=== PATIENT | male | born 1950 | race Caucasian/White ===

== ENCOUNTER 2019-02-16 17:06 | Inpatient (IN) | payer OTHER, MEDICARE ==
[~2019-02-16] VITALS: Ht 175.3 cm; Wt 64.9 kg
--- NOTE | 2019-02-16 22:04 | NUR ---
@1930 PATIENT ADMITTED FROM THE ER WITH HIS BROTHER. HE IS HAVING PAIN 8/10 IN HIS LOW ABDOMEN/PELVIS. HE IS NOT CURRENTLY NAUSEATED, HE WOULD LIKE TO EAT SOMETHING TONIGHT. ORIENTED TO ROOM AND NORMAL PROCEDURES TO EXPECT THROUGHTOUT THE NIGHT. CALL LIGHT WITHIN REACH. @2200 pATIENT CALLED RN TO ROOM WITH C/O 9/10 PAIN IN HIS PENIS AND RECTUM, SUDDEN ONSET WHEN PATIENT ATTEMPTED TP PASS GAS. THE PAIN HAS NOT SUBSIDED WITH TIME. MEDICATIONS GIVE WITH GOOD RELIEF.
--- NOTE | 2019-02-17 07:30 | NUR ---
pt awake reports pain 5/10 lower abd rad to r occ to the groin no nausea at this time but stated he has had it off and on sched for or this am npo
--- NOTE | 2019-02-17 07:45 | NUR ---
transported to day [facility] via [facility]
--- NOTE | 2019-02-17 07:57 | NUR ---
INTO SDS VIA [employer]. PT REPORTS 2/10 ABDOMINAL PAIN. DENIES NAUSEA. HISTORY AND ALLERGIES REVIEWED. NPO STATUS CONFIRMED. LUNGS WITH SCATTERED RHONCHI AND WZ. RHONCHI CLEAR SOMEWHAT WITH COUGH-PT IS A SMOKER.
--- NOTE | 2019-02-17 12:07 | NUR ---
ARRIVED BACK TO ROOM 232 FROM PACU S/P OPEN APPY PT HAS ROSARIO WOUND VAC SMALL AMT OF SEROSANG DRAINAGE PT REPORTS PAIN PRIOR TO MOVING 09/23 02/23 AFTER MOVING INTO THE BED WITH ASSIST PT HAS NAUSEA TAKING SIPS ONLY OF H20 CL TRAY ON HOLD UNILL NAUSEA IS BETTER MEDS GIVEN IN PACU
--- NOTE | 2019-02-17 14:19 | NUR ---
PT VISITING WITH BROTHER SPIRITUAL CARE AT BEDSIDE
--- NOTE | 2019-02-17 14:32 | NUR ---
Advance directive education conducted. Patient is recovering from surgery but still fairly alert with brother, Radames, bedside. Patient and Radames were delighted to receive an advance directive booklet. Radames tells me he was in on the process for his folks and his brother that in fill out their advance care planning forms. He stated that he knew its importance and how to fill it out. He thanked me for providing the booklet.
--- NOTE | 2019-02-17 16:37 | NUR ---
tums and prilosec given for radha pain meds also given increased pain
--- NOTE | 2019-02-17 18:55 | NUR ---
pt done eating cl diet min amt no nausea watching tv
[2019-02-18 04:12] LABS: BASOPHILS ABSOLUTE AUTO 0.02 K/mm3 (0.00-0.23); BASOPHILS PERCENT AUTO 0 % (0-2); EOSINOPHILS PERCENT AUTO 0 % (0-6); Hematocrit 23.6 % (37.0-53.0); Hemoglobin 7.4 g/dL (13.5-17.5); IMMATURE GRAN ABSOLUTE AUTO 0.04 K/mm3 (0.00-0.10); IMMATURE GRAN PERCENT AUTO 0 % (0-1); LYMPHOCYTES PERCENT AUTO 4 % (21-46); MONOCYTES ABSOLUTE AUTO 0.54 K/mm3 (0.16-1.47); MONOCYTES PERCENT AUTO 4 % (4-13); Mean Corpuscular HGB 28.1 pg (26.0-34.0); Mean Corpuscular HGB Conc 31.4 g/dL (31.5-36.5); Mean Corpuscular Volume 90 fL (80-100); NEUTROPHILS ABSOLUTE AUTO 12.18 K/mm3 (1.96-9.15); NEUTROPHILS PERCENT AUTO 92 % (41-73); Platelet Count 296 K/mm3 (150-400); RDW Coefficient Variation 15.6 % (11.7-14.2); RDW Standard Deviation 50.9 fL (35.1-46.3); Red Blood Cell Count 2.63 M/mm3 (4.30-5.90); White Blood Cell Count 13.28 K/mm3 (4.00-11.30)
[2019-02-18 04:30] LABS: Anion Gap 4 mmol/L (6-16); Blood Urea Nitrogen 18 mg/dL (8-24); Bun/Creatinine Ratio 19.6 (12.0-20.0); CO2, Blood 27 mmol/L (21-32); Calcium, Blood 7.7 mg/dL (8.5-10.1); Chloride, Blood 105 mmol/L (98-108); Creatinine, Blood 0.92 mg/dL (0.60-1.20); Glomerular Filtration Rate >60 (60-); Glucose, Blood 120 mg/dL (70-99); Phosphorus, Blood 2.3 mg/dL (2.5-4.9); Potassium, Blood 4.3 mmol/L (3.5-5.5); Sodium, Blood 136 mmol/L (136-145)
--- NOTE | 2019-02-18 06:44 | NUR ---
SUMMARY PT SLEPT OFF AND ON. REPOSITIONING WITH ASSIST FOR PILLOWS. NO C/O NAUSEA. SACHA PATENT.
--- NOTE | 2019-02-18 11:30 | NUR ---
DR TUBBS IN TO SEE PT.
--- NOTE | 2019-02-18 17:07 | NUR ---
SUMMARY NO ACUTE CHANGES T/O SHIFT. MEDICATED PER ORDERS T/O SHIFT FOR ABD PAIN. TOLERATING CLEAR LIQUIDS, REPORTS HUNGRY BUT DENIES PASSING FLATUS. BT PRESENT. PT AMBULATED IN SIEGEL THIS AM AND HAS SAT IN RECLINER FOR T/O SHIFT. SACHA HASTINGS THIS AM, PT REPORTS HAS VOIDED IN TOILET TWICE. BROTHER AT BEDSIDE. CALL LIGHT IN REACH. IV INFUSING W/O DIFFICULTY.
--- NOTE | 2019-02-19 07:34 | NUR ---
SUMMARY PT UP IN ROOM SBA.VOIDING WITHOUT DIFF. MED THIS AM WITH TORADOL.PT USUALLY RATES PAIN HIGH, BUT REPORTS LEVEL OK.PT ANXIOUS FOR DIET TO BE ADVANCED. HAS PASSED FLATUS. DAY RN AGREES TO FOLLOW UP. PT NOT ON THINNERS. DAY RN WILL FOLLOW UP ? THIS.PT REQUIRED NEW IV SITE THIS AM.
--- NOTE | 2019-02-19 10:00 | NUR ---
PAIN MANAGEMENT PT REPORTS CONTINUOUS UNTOLERABLE ABD PAIN DESPITE CURRENT PAIN RELIEF MEASURES AND MEDICATIONS. PT IS CURRENTLY AMBULATING IN HALLWAY AND REPORTS PASSING FLATUS T/O THE MORNING. LEFT MESSAGE FOR PROVIDER TO DISCUSS PT'S PAIN SITUATION.
--- NOTE | 2019-02-19 10:28 | NUR ---
SPOKE WITH DR. TUBBS, NEW ORDER TO ADVANCE DIET. NEW PAIN MED AND LOVENOX ORDERS OBTAINED.
--- NOTE | 2019-02-19 17:29 | NUR ---
SHIFT SUMMARY PT A&0X4 WITH VSS TODAY. IND IN ROOM WITH STAND BY TO BATHROOM R/T IV AND PAIN MEDS. REFUSES PAS STOCKINGS, NEW ORDER OBTAINED FOR LOVENOX. VOIDING WITHOUT DIFFICULTY AND REPORTS PASSING FLATUS T/O SHIFT; DECLINES BM. AMBULATED TWICE IN THE HALLWAY TODAY. TOLERATING FL DIET; DENIES ANY N/V OR ABD DISCOMFORT R/T INTAKE. ROSARIO DRESSING DRY AND INTACT W/ VAC IN PLACE; NO NEW DRAINAGE NOTED. PAIN CONTROLLED WELL PER EMAR AND REPOSITIONING. BROTHER AT BEDSIDE T/O THE AFTERNOON. CALL LIGHT WITHIN REACH AND ABLE TO USE APPROPRIATELY.
[2019-02-20 04:43] LABS: BASOPHILS ABSOLUTE AUTO 0.01 K/mm3 (0.00-0.23); BASOPHILS PERCENT AUTO 0 % (0-2); EOSINOPHILS ABSOLUTE AUTO 0.03 K/mm3 (0.00-0.68); EOSINOPHILS PERCENT AUTO 0 % (0-6); Hematocrit 24.6 % (37.0-53.0); Hemoglobin 7.8 g/dL (13.5-17.5); IMMATURE GRAN ABSOLUTE AUTO 0.03 K/mm3 (0.00-0.10); IMMATURE GRAN PERCENT AUTO 0 % (0-1); LYMPHOCYTES ABSOLUTE AUTO 1.04 K/mm3 (0.84-5.20); LYMPHOCYTES PERCENT AUTO 11 % (21-46); MONOCYTES ABSOLUTE AUTO 0.57 K/mm3 (0.16-1.47); MONOCYTES PERCENT AUTO 6 % (4-13); Mean Corpuscular HGB 28.1 pg (26.0-34.0); Mean Corpuscular HGB Conc 31.7 g/dL (31.5-36.5); Mean Corpuscular Volume 89 fL (80-100); Mean Platelet Volume 10.1 fL (9.1-12.4); NEUTROPHILS ABSOLUTE AUTO 8.23 K/mm3 (1.96-9.15); NEUTROPHILS PERCENT AUTO 83 % (41-73); Platelet Count 361 K/mm3 (150-400); RDW Coefficient Variation 15.3 % (11.7-14.2); RDW Standard Deviation 50.2 fL (35.1-46.3); Red Blood Cell Count 2.78 M/mm3 (4.30-5.90); White Blood Cell Count 9.91 K/mm3 (4.00-11.30)
--- NOTE | 2019-02-20 04:46 | NUR ---
SUMMARY SLEP QUIETLY TONIGHT. REPORTS PAIN HAS HAD BETTER CONTROL TONIGHT.NO C/O NAUSEA. VOIDING WITHOUT DIFF.
[2019-02-20 05:05] LABS: Anion Gap 3 mmol/L (6-16); Blood Urea Nitrogen 11 mg/dL (8-24); Bun/Creatinine Ratio 13.5 (12.0-20.0); CO2, Blood 31 mmol/L (21-32); Calcium, Blood 7.6 mg/dL (8.5-10.1); Chloride, Blood 103 mmol/L (98-108); Creatinine, Blood 0.81 mg/dL (0.60-1.20); Glomerular Filtration Rate >60 (60-); Glucose, Blood 99 mg/dL (70-99); Magnesium, Blood 1.8 mg/dL (1.6-2.4); Phosphorus, Blood 3.1 mg/dL (2.5-4.9); Potassium, Blood 3.9 mmol/L (3.5-5.5); Sodium, Blood 137 mmol/L (136-145)
--- NOTE | 2019-02-20 17:18 | NUR ---
SHIFT SUMMARY PT HAS BEEN UP TO BATHROOM TODAY AND SHOWERED. PAIN MANAGED WITH MEDS PER ORDERS. TOLERATING FLUIDS WELL. DRESSINGS DRY AND INTACT. PT VOIDING, REPORTS BM'S. PT HAD PRN INHALER/BREATHING TREATMENT WITH RT TODAY. HAS HX OF COPD. PT AO, INDEPENDANT IN . HAD VISITORS TODAY. ASSISTED WITH ADL'S PRN.
--- NOTE | 2019-02-21 06:59 | NUR ---
SUMMARY: POD 4 ILEOCECECTOMY. VSS, AFEBRILE, PASSING GAS AND SMALL LOOSE STOOL. TOLERATING PO INTAKE AND PAIN WELL CONTROLLED WITH 10MG PO ROXICODONE. ANTICIPATE DC HOME LATER THIS DAY.
--- NOTE | 2019-02-21 17:43 | NUR ---
SHIFT SUMMARY PT HAD VISITOR TODAY. HAS REPORTED PAIN CONTROLLED WITH PO PAIN MEDS. PT DID HAVE SOME NAUSEA AFTER EATING SOLID FOOD. PO ZOFRAN GIVEN PER EMAR. PT REPORTS THIS HELPED. PT IND IN RM. TOLERATING FLUIDS WELL AND VOIDING. ASSISTED WTIH ADL'S PRN.
--- NOTE | 2019-02-22 07:48 | NUR ---
pt reporting nausea still with the reg diet zofran given pre med before breakfast pt reports abd pain 5/10 at this time will med after food to decrease the nausea pt stated he is passing flatus abd had a bm
--- NOTE | 2019-02-22 11:00 | NUR ---
pt having hiccups reglan given still no bm miralx given earlier pt drinking prune juice
--- NOTE | 2019-02-22 15:50 | NUR ---
PRUNE JUICE AND REGLAN GIVEN PT STATED HE PASSED SOME GAS NO BM YET
--- NOTE | 2019-02-22 17:04 | NUR ---
po pain meds given with pudding
--- NOTE | 2019-02-23 04:48 | NUR ---
Pt Alert and oriented x4. VSS. COmplaints of mild abd pain and hiccups. Passing gas but no BM. Given miralax; no results. Ambulating in room independently. medicated as ordered.
--- NOTE | 2019-02-23 18:14 | NUR ---
SHIFT SUMMARY PT A&OX4 WITH VSS T/O SHIFT TODAY. REPORTS NOT PASSING FLATUS SINCE THIS MORNING. NEW ORDERS OBTAINED AND MEDICATED PER EMAR. PT AMBULATED IND IN ROOM, HALLWAYS, AND OUTSIDE TODAY. BROTHER AT BEDSIDE FOR MOST OF THE SHIFT. C/O PAIN ONCE TODAY; PO PAIN MEDICATIONS GIVEN.
--- NOTE | 2019-02-24 05:51 | NUR ---
PT ALERT AND ORIENTED. VSS. AMBULATING IN ROOM. ABDOMEN DISTENDED; PATIENT COMPLAINT OF PAIN AND HICCUPS PASSING GAS. NO BM, DULCOLAX SUPP GIVEN; AWAITING RESULTS.
[2019-02-24 09:05] LABS: BASOPHILS ABSOLUTE AUTO 0.02 K/mm3 (0.00-0.23); BASOPHILS PERCENT AUTO 0 % (0-2); EOSINOPHILS ABSOLUTE AUTO 0.03 K/mm3 (0.00-0.68); EOSINOPHILS PERCENT AUTO 0 % (0-6); Hematocrit 29.7 % (37.0-53.0); Hemoglobin 9.4 g/dL (13.5-17.5); IMMATURE GRAN ABSOLUTE AUTO 0.13 K/mm3 (0.00-0.10); IMMATURE GRAN PERCENT AUTO 1 % (0-1); LYMPHOCYTES ABSOLUTE AUTO 1.22 K/mm3 (0.84-5.20); LYMPHOCYTES PERCENT AUTO 10 % (21-46); MONOCYTES ABSOLUTE AUTO 0.71 K/mm3 (0.16-1.47); MONOCYTES PERCENT AUTO 6 % (4-13); Mean Corpuscular HGB 27.3 pg (26.0-34.0); Mean Corpuscular HGB Conc 31.6 g/dL (31.5-36.5); Mean Platelet Volume 9.9 fL (9.1-12.4); NEUTROPHILS ABSOLUTE AUTO 10.07 K/mm3 (1.96-9.15); NEUTROPHILS PERCENT AUTO 83 % (41-73); Platelet Count 663 K/mm3 (150-400); RDW Coefficient Variation 15.9 % (11.7-14.2); RDW Standard Deviation 50.4 fL (35.1-46.3); Red Blood Cell Count 3.44 M/mm3 (4.30-5.90); White Blood Cell Count 12.18 K/mm3 (4.00-11.30)
[2019-02-24 09:09] LABS: Mean Corpuscular Volume 86 fL (80-100)
[2019-02-24 09:16] LABS: Anion Gap 8 mmol/L (6-16); Blood Urea Nitrogen 8 mg/dL (8-24); Bun/Creatinine Ratio 9.2 (12.0-20.0); CO2, Blood 30 mmol/L (21-32); Calcium, Blood 8.3 mg/dL (8.5-10.1); Chloride, Blood 97 mmol/L (98-108); Creatinine, Blood 0.87 mg/dL (0.60-1.20); Glomerular Filtration Rate >60 (60-); Glucose, Blood 101 mg/dL (70-99); Potassium, Blood 4.3 mmol/L (3.5-5.5); Sodium, Blood 135 mmol/L (136-145)
--- NOTE | 2019-02-24 11:36 | NUR ---
PT ANXIOUS AND REPORTS SOB PT REPORTED FEELING ANXIOUS AND SOB AT APPROX 1100 TODAY. PT WAS A&OX4, SPO2 AT 98% RA WITH RR OF 20. WHEEZES AUSCULTATED IN TAYLOR/RUL WITH COARSE CRACKLES AT BASES. HOB ELEVATED, DEEP COUGH/BREATHS AND I.S. USE ENCOURAGED, AND BREATHING TREATMENT ORDERED. REPORTED "FEELING BETTER" AFTER BREATHING TREATMENT AND DENIED ANY SOB. NO WHEEZING IN UPPER LOBES NOTED AT THIS TIME. PT IS CURRENTLY SLEEPING IN BED. WILL CONTINUE TO MONITOR.
--- NOTE | 2019-02-24 13:18 | NUR ---
PT TO CT VIA WHEELCHAIR AT THIS TIME
--- NOTE | 2019-02-24 13:49 | NUR ---
BACK FROM IMAGING.
--- NOTE | 2019-02-24 16:14 | NUR ---
DR. TUBBS IN TO SEE PT THIS AFTERNOON. NEW ORDERS OBTAINED.
[2019-02-24 16:27] LABS: International Normalized Ratio 1.17; Prothrombin Time Results 12.2 Sec (9.7-11.5)
--- NOTE | 2019-02-24 17:22 | NUR ---
SHIFT SUMMARY HAD C/T TODAY THAT SHOWED ABSCESS. ORDERS OBTAINED FOR PERCUTANEOUS DRAIN. CURRENTLY IN IMAGING FOR PLACEMENT. HAD ONE EPISODE OF SOB AND ANXIOUSNESS THIS MORNING; O2 SATS STABLE AND RECEIVED BREATHING TREATMENT; NO NEW COMPLAINTS. ON CL DIET. IND IN ROOM AND WITH VISITOR AT BEDSIDE FREQUENTLY T/O SHIFT. HAD 2 BM TODAY.
--- NOTE | 2019-02-24 18:20 | NUR ---
PT BACK FROM IMAGING
[2019-02-25 05:47] LABS: BASOPHILS ABSOLUTE AUTO 0.03 K/mm3 (0.00-0.23); BASOPHILS PERCENT AUTO 0 % (0-2); EOSINOPHILS ABSOLUTE AUTO 0.01 K/mm3 (0.00-0.68); EOSINOPHILS PERCENT AUTO 0 % (0-6); Hematocrit 25.8 % (37.0-53.0); Hemoglobin 8.5 g/dL (13.5-17.5); IMMATURE GRAN ABSOLUTE AUTO 0.17 K/mm3 (0.00-0.10); IMMATURE GRAN PERCENT AUTO 1 % (0-1); LYMPHOCYTES ABSOLUTE AUTO 1.28 K/mm3 (0.84-5.20); LYMPHOCYTES PERCENT AUTO 9 % (21-46); MONOCYTES PERCENT AUTO 7 % (4-13); Mean Corpuscular HGB 27.1 pg (26.0-34.0); Mean Corpuscular HGB Conc 32.9 g/dL (31.5-36.5); Mean Platelet Volume 9.3 fL (9.1-12.4); NEUTROPHILS ABSOLUTE AUTO 11.64 K/mm3 (1.96-9.15); NEUTROPHILS PERCENT AUTO 82 % (41-73); Platelet Count 641 K/mm3 (150-400); RDW Coefficient Variation 15.9 % (11.7-14.2); RDW Standard Deviation 47.2 fL (35.1-46.3); Red Blood Cell Count 3.14 M/mm3 (4.30-5.90); White Blood Cell Count 14.13 K/mm3 (4.00-11.30)
[2019-02-25 05:51] LABS: Mean Corpuscular Volume 82 fL (80-100)
[2019-02-25 06:12] LABS: Anion Gap 7 mmol/L (6-16); Blood Urea Nitrogen 12 mg/dL (8-24); Bun/Creatinine Ratio 15.3 (12.0-20.0); CO2, Blood 28 mmol/L (21-32); Chloride, Blood 101 mmol/L (98-108); Creatinine, Blood 0.78 mg/dL (0.60-1.20); Glomerular Filtration Rate >60 (60-); Glucose, Blood 141 mg/dL (70-99); Magnesium, Blood 2.5 mg/dL (1.6-2.4); Phosphorus, Blood 2.8 mg/dL (2.5-4.9); Potassium, Blood 3.8 mmol/L (3.5-5.5); Sodium, Blood 136 mmol/L (136-145); Triglycerides 175 mg/dL (30-160)
--- NOTE | 2019-02-25 06:12 | NUR ---
SHIFT SUMMARY PT POD#8. AAOX4. DISCOMFORT AT TOLERABLE LEVEL T/O NIGHT. NO NAUSEA/EMESIS. ABD INCISION WITH ROSARIO SECURE/COMPRESSED WITH NO DRAINAGE. PERCUTANIOUS DRAIN PLACE YESTARDAY, SCANT AMOUNT DRAINAGE NOTED. PT RESTED WELL T/O NIGHT. CLINIMIX + IV ABX PER ORDERS. PT RESTING WELL THIS AM, CALL LIGHT IN REACH.
--- NOTE | 2019-02-25 17:25 | NUR ---
SHIFT SUMMARY PT IS IND IN RM. HAS REPORTED SOME PAIN TODAY AND WAS MEDICATED PER ORDERS. TOLERATING CLEAR LIQUID DIET WELL. FAMILY HAS BEEN IN TO SEE PT. WAS IN TO SEE PT TODAY AND CHECKED DRAIN AND WOUND VAC. PT ASSISTED WITH ADL'S PRN.
[2019-02-26 05:59] LABS: Magnesium, Blood 2.3 mg/dL (1.6-2.4)
--- NOTE | 2019-02-26 06:27 | NUR ---
SHIFT SUMMARY: NANCY IS POD9 AFTER UNDERGOING AN APPENDECTOMY AND BOWEL RESECTION. HIS ROSARIO WOUND VAC IS PATENT. HE HAS A DRAIN TO HIS LEFT LOWER FLANK WHICH HAS A SCANT AMOUNT OF SEROSANGEINOUS FLUID. HE RATED HIS PAIN AT 7/10 FOR WHICH ROXICODONE WAS EFFECTIVE. HE DENIES ANY NAUSEA OR VOMITING. HE IS INDEPENDENT IN HIS ROOM. HE IS TOLERATING THE CLEAR LIQID DIET WELL. HE IS LYING IN BED WITH HIS CALL LIGHT IN REACH.
--- NOTE | 2019-02-26 16:23 | NUR ---
SHIFT SUMMARY PT WAS ADVANCED TO REGULAR DIET TODAY AND TOLERATED WELL. REPORTED NO NAUSEA AFTER EATING. PAIN HAS BEEN MANAGED WITH MED PRN. PT HAS VOIDED AND HAD BM TODAY. IND IN ROOM. PT HAD FAMILY IN TODAY. ASSISTED WT ADL'S PRN.
--- NOTE | 2019-02-27 06:08 | NUR ---
SHIFT SUMMARY: GALILEA IS A&O X4, INDEPENDENT IN HIS ROOM AND TOLERATING THE REGULAR DIET WELL. HE DENIES ANY N/V. HE IS ABLE TO MAKE HIS NEEDS KNOWN. HE COMPLAINS OF 8/10 PAIN THAT IS HELPED WITH THE ROXICODONE. HIS CALL LIGHT IS IN REACH. NO ACUTE CHANGES THIS SHIFT.
[2019-02-27 07:05] LABS: BASOPHILS ABSOLUTE AUTO 0.05 K/mm3 (0.00-0.23); BASOPHILS PERCENT AUTO 0 % (0-2); EOSINOPHILS ABSOLUTE AUTO 0.11 K/mm3 (0.00-0.68); EOSINOPHILS PERCENT AUTO 1 % (0-6); Hemoglobin 8.1 g/dL (13.5-17.5); IMMATURE GRAN ABSOLUTE AUTO 0.21 K/mm3 (0.00-0.10); IMMATURE GRAN PERCENT AUTO 2 % (0-1); LYMPHOCYTES ABSOLUTE AUTO 1.79 K/mm3 (0.84-5.20); LYMPHOCYTES PERCENT AUTO 13 % (21-46); MONOCYTES PERCENT AUTO 6 % (4-13); Mean Corpuscular HGB 26.6 pg (26.0-34.0); Mean Corpuscular HGB Conc 31.2 g/dL (31.5-36.5); Mean Platelet Volume 9.7 fL (9.1-12.4); NEUTROPHILS ABSOLUTE AUTO 10.64 K/mm3 (1.96-9.15); NEUTROPHILS PERCENT AUTO 78 % (41-73); Platelet Count 552 K/mm3 (150-400); RDW Coefficient Variation 16.5 % (11.7-14.2); RDW Standard Deviation 51.3 fL (35.1-46.3); Red Blood Cell Count 3.05 M/mm3 (4.30-5.90)
[2019-02-27 07:08] LABS: Mean Corpuscular Volume 85 fL (80-100)
[2019-02-27 07:18] LABS: Magnesium, Blood 2.2 mg/dL (1.6-2.4); Phosphorus, Blood 3.5 mg/dL (2.5-4.9)
--- NOTE | 2019-02-27 08:33 | NUR ---
PT TO IMAGING AT THIS TIME VIA WHEELCHAIR
--- NOTE | 2019-02-27 10:07 | NUR ---
PT gave permission for this student nurse to work with him
--- NOTE | 2019-02-27 17:53 | NUR ---
SUMMARY: NO ACUTE CHANGE TODAY, VSS, A/O. PT INDEPENDENT IN ROOM. VOIDING AND HAD BM TODAY. PAIN IS WELL MANAGED, PLAN IS POSSIBLE DISCHARGE TOMORROW.
--- NOTE | 2019-02-28 05:54 | NUR ---
PT VSS T/O NIGHT. INCISION CDI. PT MED FOR PAIN X1 W/REP RELIEF. PT DID HAVE 2 EPISODES OF N/V W/GREEN EMESIS. ABD SOFT, T-TUBE PUTTING OUT SMALL AMT SS DNRG. PT REP +FLATUS, NO BM THIS SHIFT. PT UP INDEP IN ROOM, USING CALL LIGHT FOR ASSISTANCE, IV ABX CONT PER ORDERS. WILL CONT TO MONITOR UNTIL REP GIVEN TO ONCOMING RN.
--- NOTE | 2019-02-28 18:02 | NUR ---
AT ABOUT 1630 PT CALLED THIS RN INTO ROOM. PT REPORTS THAT HIS R CHEEK IS NUMB AND THAT THE RIGHT SIDE OF HIS FACE IS DROOPING. FULL NEURO ASSESSMENT COMPLETED WITHOUT ANY ACUTE FINDINGS. PT HAS EQUAL STRENGTH, PUPILS WNL, IS A/O. DENIES ANY NUMBNESS/TINGLING EXCEPT IN R CHEEK. R FACIL DROOP AND SMALL AMOUNT SLURRED SPEECH IS NOTED ON ASSESSMENT, BUT THIS RN IS SPEAKING WITH THE PT, THE DROOP BECOMES LESS, PT SPEECH BECOMES MORE CLEAR AND PT REPORTS FEELING COMING BACK INTO R CHEEK. VS ARE STABLE. DR. TUBBS MADE AWARE OF THIS AND HOSPITALIST, DR. BOONETRATE CALLED FOR CONSULT.
--- NOTE | 2019-02-28 18:13 | NUR ---
SUMMARY: PT HAS HAD AN ODD DAY. SEE PREVIOUS NOTE. HAS HAD INTERMITTANT NAUSEA ALL DAY AND REPORTS "FEELING SICK". HAS HAD A TOTAL OF 1800ML EMESIS. PT REPORT IV ZOFRAN DOES NOT HELP WITH NAUSEA, DR. TUBBS NOTIFIED OF PT NAUSEA AND REGLAN ORDERED.
--- NOTE | 2019-02-28 19:47 | NUR ---
SUMMARY CONTINUED: SURGICAL SITES WNL. PT INDEPENDENT IN ROOM. ISTRATE ABLE TO SEE PT AND IMAGING ORDERED, AWAITING RESULTS. WILL PASS REPORT TO GRETCHEN PRITCHETT.
[2019-03-01 06:04] LABS: BASOPHILS ABSOLUTE AUTO 0.07 K/mm3 (0.00-0.23); BASOPHILS PERCENT AUTO 1 % (0-2); EOSINOPHILS ABSOLUTE AUTO 0.04 K/mm3 (0.00-0.68); EOSINOPHILS PERCENT AUTO 0 % (0-6); Hematocrit 29.7 % (37.0-53.0); Hemoglobin 9.6 g/dL (13.5-17.5); IMMATURE GRAN ABSOLUTE AUTO 0.14 K/mm3 (0.00-0.10); IMMATURE GRAN PERCENT AUTO 1 % (0-1); LYMPHOCYTES ABSOLUTE AUTO 1.59 K/mm3 (0.84-5.20); LYMPHOCYTES PERCENT AUTO 12 % (21-46); MONOCYTES ABSOLUTE AUTO 0.91 K/mm3 (0.16-1.47); MONOCYTES PERCENT AUTO 7 % (4-13); Mean Corpuscular HGB 27.1 pg (26.0-34.0); Mean Corpuscular HGB Conc 32.3 g/dL (31.5-36.5); Mean Corpuscular Volume 84 fL (80-100); Mean Platelet Volume 9.6 fL (9.1-12.4); NEUTROPHILS ABSOLUTE AUTO 11.07 K/mm3 (1.96-9.15); NEUTROPHILS PERCENT AUTO 80 % (41-73); Platelet Count 781 K/mm3 (150-400); RDW Coefficient Variation 16.5 % (11.7-14.2); RDW Standard Deviation 50.4 fL (35.1-46.3); Red Blood Cell Count 3.54 M/mm3 (4.30-5.90); White Blood Cell Count 13.82 K/mm3 (4.00-11.30)
[2019-03-01 06:11] LABS: Alanine Aminotransfer (ALT/SGP 44 U/L (12-78); Albumin, Blood 2.3 g/dL (3.4-5.0); Albumin/Globulin Ratio 0.5 (0.8-1.8); Alk Phos 157 U/L (50-136); Anion Gap 8 mmol/L (6-16); Aspartate Aminotrans (AST/SGOT 36 U/L (12-37); Bilirubin, Total 0.5 mg/dL (0.1-1.0); Blood Urea Nitrogen 23 mg/dL (8-24); Bun/Creatinine Ratio 21.7 (12.0-20.0); CO2, Blood 31 mmol/L (21-32); Calcium, Blood 8.9 mg/dL (8.5-10.1); Chloride, Blood 97 mmol/L (98-108); Creatinine, Blood 1.06 mg/dL (0.60-1.20); Glomerular Filtration Rate >60 (60-); Glucose, Blood 114 mg/dL (70-99); Potassium, Blood 3.7 mmol/L (3.5-5.5); Sodium, Blood 136 mmol/L (136-145); Total Protein, Blood 7.3 g/dL (6.4-8.2)
--- NOTE | 2019-03-01 06:36 | NUR ---
PT VSS T/O NIGHT. PAIN MGD W/PO PAIN MEDS W/REP RELIEF. PT CONT TO HAVE NAUSEA W/2 EPISODES OF SM AMT EMESIS. PT REFUSING NASUEA MEDS, STATING "I THINK THEY MAKE IT WORSE" PT REP +FLATUS NAD 1 LARGE BM THIS SHIFT. PO INTAKE MINIMAL, CLINIMIX CONT PER ORDERS. MINIMAL SS DRNG FROM T-TUBE. WILL CONT TO MONITOR UNTIL REP GIVEN TO ONCOMING RN.
--- NOTE | 2019-03-01 09:13 | NUR ---
pt ref meds for bm stated that he had two bm yesterday 1 lg 1 small 1 episode of emesis this am offered zofran pt declined offered tums stated ok pt stated no residual symptoms from yesterday had a droop for several min and garbled speech no other symptoms pt pig tail drain has red liquid drainage small amt some abd dist
--- NOTE | 2019-03-01 12:03 | NUR ---
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
--- NOTE | 2019-03-01 12:07 | NUR ---
message left with ans service at [facility]
--- NOTE | 2019-03-01 12:31 | NUR ---
dr zazueta to see pt later today around 700 pm mri form faxed
--- NOTE | 2019-03-01 16:07 | NUR ---
ISTRATE BACK BY TO SEE PT DECADRON ORDERED FOR THE N/V FIRST DOSE GIVEN
--- NOTE | 2019-03-01 18:20 | NUR ---
PT WENT OUT TO SMOKE STATED HIS NAUSEA IS BETTER
--- NOTE | 2019-03-01 18:51 | NUR ---
pt back from smoking hooked back to ivf
--- NOTE | 2019-03-01 19:20 | NUR ---
dr zazueta by to see pt going over dx/tx and mri results pt brother also there pt's sister req to be called
--- NOTE | 2019-03-02 05:57 | NUR ---
SHIFT SUMMARY: GALILEA IS RECOVERING AFTER UNDERGOING SURGERY FOR A PERFORATED APPENDIX WITH CONVERSION TO OPEN PROCEDURE WITH ILEOCECECTOMY. THAT SURGERY WAS PERFORMED 02/17/19. AN ABSCESS DEVELOPED AND A DRAIN WAS PLACED 02/24/19. HE DENIES VOMITING AT THIS TIME. HE DOES REPORT SOME MILD NAUSEA BUT HIS MAIN COMPLAINT WAS EPIGASTRIC PAIN WHICH WAS RESOLVED WITH A GI COCKTAIL. HIS ABDOMINAL INCISION IS GRICELDA, NO DRAINAGE OR S/S OF INFECTION. VSS. HE IS LYING IN BED WITH HIS CALL LIGHT IN REACH. HE IS INDEPENDENT IN THE ROOM.
[2019-03-02 06:44] LABS: Hematocrit 28.2 % (37.0-53.0); Hemoglobin 9.1 g/dL (13.5-17.5); Mean Corpuscular HGB 27.7 pg (26.0-34.0); Mean Corpuscular HGB Conc 32.3 g/dL (31.5-36.5); Mean Corpuscular Volume 86 fL (80-100); Mean Platelet Volume 9.6 fL (9.1-12.4); Platelet Count 820 K/mm3 (150-400); RDW Coefficient Variation 16.6 % (11.7-14.2); RDW Standard Deviation 51.3 fL (35.1-46.3); Red Blood Cell Count 3.29 M/mm3 (4.30-5.90); White Blood Cell Count 12.73 K/mm3 (4.00-11.30)
[2019-03-02 07:02] LABS: Magnesium, Blood 2.5 mg/dL (1.6-2.4); Phosphorus, Blood 4.4 mg/dL (2.5-4.9)
[2019-03-02 07:14] LABS: BAND PERCENT MAN 1 % (0-8); BASOPHILS PERCENT MAN 0 % (0-2); EOSINOPHILS PERCENT MAN 0 % (0-6); LYMPHOCYTES PERCENT MAN 15 % (21-46); METAMYELOCYTE ABSOLUTE MAN 0.12 K/mm3 (0.00-0.00); METAMYELOCYTE PERCENT MAN 1 % (0-0); MONOCYTES ABSOLUTE MAN 1.52 K/mm3 (0.16-1.47); MONOCYTES PERCENT MAN 12 % (4-13); NEUTROPHILS ABSOLUTE MAN 9.16 K/mm3 (1.96-9.15); SEG NEUTROPHILS PERCENT MAN 71 % (41-73); TOTAL CELLS COUNTED 100
--- NOTE | 2019-03-02 08:05 | NUR ---
ASSESSMENT: PT SLEEPING. RESP E/U. NO S/S PAIN OR DISTRESS. CALL LIGHT IN REACH. WILL ALLOW REST AND FULLY ASSESS WHEN PT IS AWAKE.
--- NOTE | 2019-03-02 09:27 | NUR ---
rounding: dr in to see patient and make some medication changes. stool softeners held r/t multiple soft bm's. ct of chest ordered for today. am labs ordered.
--- NOTE | 2019-03-02 10:01 | NUR ---
IMAGING: PT TO IMAGING FOR CT OF CHEST.
--- NOTE | 2019-03-02 12:00 | NUR ---
WOUND: DR TUBBS IN TO SEE PATIENT. RICKI REMOVED FROM SURGICAL SITES PER VERBAL ORDER. PT TRACEY WELL.
--- NOTE | 2019-03-02 13:11 | NUR ---
RESPIRATORY: PT HAS BEEN PLACED IN AIRBORNE ISOLATION FOR TB PRECAUTIONS. EXPLAINED TO FAMILY AND PATIENT. PULMONOLOGY CONSULT CALLED.
--- NOTE | 2019-03-02 17:11 | NUR ---
PT HAS BEEN STABLE THIS SHIFT. PT HAD CT OF CHEST THIS AM. PT IN AIRBORNE ISOLATION R/T R/O OF TB, LAB PENDING. SPUTUM SENT FOR AFB, BACTERIA AND FUNGUS. PT HAS WHEEZES T/O LUNGS WITH OCCASIONAL DRY COUGH. PT UP INDEP IN ROOM. PT CONT TO SMOKE. RICKI REMOVED FROM SURGICAL SITES. PT HAS POOR APPETITE, CONT CLINIMIX. VOIDING WELL WITH BR PRIVILEGES. PROTONIX STARTED FOR GERD COMPLAINTS. NO NAUSEA OR EMESIS THIS SHIFT. BROTHER AT BEDSIDE. USES CALL LIGHT APPROPRIATELY NEEDED.
--- NOTE | 2019-03-03 05:24 | NUR ---
Patient alert and oriented. VSS. Ambulating to bathroom. voiding freely. No drainage from drain. No complaints of pain. NPO since midnight. Will hold 0600 oral meds pending Endoscopy in A.M. Sputum sample collect and sent to lab.
[2019-03-03 06:38] LABS: Hematocrit 25.1 % (37.0-53.0); Mean Corpuscular HGB 27.2 pg (26.0-34.0); Mean Corpuscular HGB Conc 31.9 g/dL (31.5-36.5); Mean Corpuscular Volume 85 fL (80-100); Mean Platelet Volume 9.6 fL (9.1-12.4); Platelet Count 773 K/mm3 (150-400); RDW Coefficient Variation 16.9 % (11.7-14.2); RDW Standard Deviation 52.3 fL (35.1-46.3); Red Blood Cell Count 2.94 M/mm3 (4.30-5.90); White Blood Cell Count 12.03 K/mm3 (4.00-11.30)
[2019-03-03 06:49] LABS: Anion Gap 7 mmol/L (6-16); Blood Urea Nitrogen 26 mg/dL (8-24); CO2, Blood 25 mmol/L (21-32); Calcium, Blood 8.3 mg/dL (8.5-10.1); Chloride, Blood 104 mmol/L (98-108); Creatinine, Blood 0.81 mg/dL (0.60-1.20); Glomerular Filtration Rate >60 (60-); Glucose, Blood 108 mg/dL (70-99); Potassium, Blood 4.2 mmol/L (3.5-5.5); Sodium, Blood 136 mmol/L (136-145)
[2019-03-03 06:59] LABS: BASOPHILS PERCENT MAN 0 % (0-2); EOSINOPHILS ABSOLUTE MAN 0.12 K/mm3 (0.00-0.68); EOSINOPHILS PERCENT MAN 1 % (0-6); LYMPHOCYTES % ATYPICAL MANUAL 2 % (0-0); LYMPHOCYTES ABSOLUTE MAN 2.28 K/mm3 (0.84-5.20); LYMPHOCYTES PERCENT MAN 17 % (21-46); MONOCYTES PERCENT MAN 5 % (4-13); NEUTROPHILS ABSOLUTE MAN 9.02 K/mm3 (1.96-9.15); SEG NEUTROPHILS PERCENT MAN 75 % (41-73); TOTAL CELLS COUNTED 100
--- NOTE | 2019-03-03 07:50 | NUR ---
pt resting meds given earlier protonix and decadron npo for bronch with pulomonology pt stated no nausea this am feels better no drainage per t tube drain
--- NOTE | 2019-03-03 09:50 | NUR ---
operator lights and dr bernard by to see pt called day surg to cancel bronch per his req will cont to try to obtain sputum samples need 2 more [address] bernard pt may d/c home surg cleared but must remain until samples are given t tube drain removed earlier dr santamaria came by re tb skin test while he is here
--- NOTE | 2019-03-03 15:56 | NUR ---
SECOND SPUTUM SAMPLE SENT TO LAB NO SALIVA ALSO SL IV PT EATING AND DRINKING WELL NO NAUSEA ABX CHANGE TO PO
--- NOTE | 2019-03-03 17:30 | NUR ---
pt eating dinner
[2019-03-04 10:15] LABS: BASOPHILS ABSOLUTE AUTO 0.01 K/mm3 (0.00-0.23); BASOPHILS PERCENT AUTO 0 % (0-2); EOSINOPHILS ABSOLUTE AUTO 0.01 K/mm3 (0.00-0.68); EOSINOPHILS PERCENT AUTO 0 % (0-6); Hematocrit 27.5 % (37.0-53.0); Hemoglobin 8.6 g/dL (13.5-17.5); IMMATURE GRAN ABSOLUTE AUTO 0.05 K/mm3 (0.00-0.10); IMMATURE GRAN PERCENT AUTO 1 % (0-1); LYMPHOCYTES ABSOLUTE AUTO 1.04 K/mm3 (0.84-5.20); LYMPHOCYTES PERCENT AUTO 10 % (21-46); MONOCYTES ABSOLUTE AUTO 0.27 K/mm3 (0.16-1.47); MONOCYTES PERCENT AUTO 3 % (4-13); Mean Corpuscular HGB 27.5 pg (26.0-34.0); Mean Corpuscular HGB Conc 31.3 g/dL (31.5-36.5); Mean Platelet Volume 9.5 fL (9.1-12.4); NEUTROPHILS ABSOLUTE AUTO 8.68 K/mm3 (1.96-9.15); NEUTROPHILS PERCENT AUTO 86 % (41-73); Platelet Count 706 K/mm3 (150-400); RDW Coefficient Variation 17.1 % (11.7-14.2); RDW Standard Deviation 54.5 fL (35.1-46.3); Red Blood Cell Count 3.13 M/mm3 (4.30-5.90); White Blood Cell Count 10.06 K/mm3 (4.00-11.30)
[2019-03-04 10:17] LABS: Mean Corpuscular Volume 88 fL (80-100)
--- NOTE | 2019-03-04 12:01 | NUR ---
48 HR TB TEST READ: NO REDNESS OR SWELLING TO SITE. CHARTED IN EMAR
[2019-03-04 14:06] LABS: QUANTIFERON MITOGEN VALUE 0.84 IU/mL (.); QUANTIFERON NIL VALUE 0.03 IU/mL (.); QUANTIFERON TB1 AG VALUE 0.03 IU/mL (.); QUANTIFERON TB2 AG VALUE 0.03 IU/mL (.); QUANTIFERON-TB GOLD PLUS Negative (Negative)
--- NOTE | 2019-03-04 19:04 | NUR ---
SUMMARY: NO ACUTE CHANGE TODAY, VSS,A/0. NO S/SX OF TIA. MEDICATED FOR PAIN PRN PER EMAR. PT HAS DENIED NAUSEA AND HAS TAKEN SERVERAL WALKS. TOLERATING REG DIET. NO CONCERNS AT THIS TIME, PLAN IS DC ON WEDNESDAY. WILL PASS REPORT TO GRETCHEN PRITCHETT.
[2019-03-05 05:27] LABS: BASOPHILS ABSOLUTE AUTO 0.01 K/mm3 (0.00-0.23); BASOPHILS PERCENT AUTO 0 % (0-2); EOSINOPHILS ABSOLUTE AUTO 0.01 K/mm3 (0.00-0.68); EOSINOPHILS PERCENT AUTO 0 % (0-6); Hematocrit 29.5 % (37.0-53.0); Hemoglobin 9.3 g/dL (13.5-17.5); IMMATURE GRAN ABSOLUTE AUTO 0.03 K/mm3 (0.00-0.10); IMMATURE GRAN PERCENT AUTO 0 % (0-1); LYMPHOCYTES ABSOLUTE AUTO 1.96 K/mm3 (0.84-5.20); LYMPHOCYTES PERCENT AUTO 20 % (21-46); MONOCYTES ABSOLUTE AUTO 0.51 K/mm3 (0.16-1.47); MONOCYTES PERCENT AUTO 5 % (4-13); Mean Corpuscular HGB 26.9 pg (26.0-34.0); Mean Corpuscular HGB Conc 31.5 g/dL (31.5-36.5); Mean Corpuscular Volume 85 fL (80-100); Mean Platelet Volume 9.2 fL (9.1-12.4); NEUTROPHILS ABSOLUTE AUTO 7.39 K/mm3 (1.96-9.15); NEUTROPHILS PERCENT AUTO 75 % (41-73); Platelet Count 771 K/mm3 (150-400); RDW Standard Deviation 52.8 fL (35.1-46.3); Red Blood Cell Count 3.46 M/mm3 (4.30-5.90); White Blood Cell Count 9.91 K/mm3 (4.00-11.30)
--- NOTE | 2019-03-05 06:48 | NUR ---
SHIFT SUMMARY LYING IN SEMI FOWLERS WITH EYES CLOSED. HAS DONE WELL THIS SHIFT. MEDICATED FOR PAIN X1. EDUCATED ON DISEASE PROCESS AND POC, VOICES UNDERSTANDING. DENEIS FURTHER NEEDS OR WANTS AT THIS TIME. SAFETY MEASURES IN PLACE. WILL GIVE HAND OFF TO ONCOMING SHIFT USING SBAR.
--- NOTE | 2019-03-05 19:17 | NUR ---
SUMMARY: NO CHANGE TODAY. PT CONTINUES TO BE IN GOOD SPIRITS. BM TODAY. PAIN MANAGED, TOLERATING DIET, FREQUENT WALKS TODAY TO SMOKE. VSS. PT IS CLEARED BY SURGERY AND PLAN IS FOR DISCHARGE TOMORROW OF WHICH PT IS AWARE AND HAS MADE ARRAGEMENTS. REPORT GIVEN TO SHREYAS DOOLEY.
[2019-03-06 04:34] LABS: BASOPHILS ABSOLUTE AUTO 0.01 K/mm3 (0.00-0.23); BASOPHILS PERCENT AUTO 0 % (0-2); EOSINOPHILS PERCENT AUTO 0 % (0-6); Hematocrit 26.9 % (37.0-53.0); Hemoglobin 8.4 g/dL (13.5-17.5); IMMATURE GRAN ABSOLUTE AUTO 0.05 K/mm3 (0.00-0.10); IMMATURE GRAN PERCENT AUTO 1 % (0-1); LYMPHOCYTES ABSOLUTE AUTO 1.55 K/mm3 (0.84-5.20); LYMPHOCYTES PERCENT AUTO 16 % (21-46); MONOCYTES ABSOLUTE AUTO 0.65 K/mm3 (0.16-1.47); MONOCYTES PERCENT AUTO 7 % (4-13); Mean Corpuscular HGB 26.6 pg (26.0-34.0); Mean Corpuscular HGB Conc 31.2 g/dL (31.5-36.5); Mean Corpuscular Volume 85 fL (80-100); Mean Platelet Volume 9.8 fL (9.1-12.4); NEUTROPHILS ABSOLUTE AUTO 7.65 K/mm3 (1.96-9.15); NEUTROPHILS PERCENT AUTO 77 % (41-73); Platelet Count 695 K/mm3 (150-400); RDW Coefficient Variation 16.9 % (11.7-14.2); RDW Standard Deviation 52.4 fL (35.1-46.3); Red Blood Cell Count 3.16 M/mm3 (4.30-5.90); White Blood Cell Count 9.91 K/mm3 (4.00-11.30)
--- NOTE | 2019-03-06 06:04 | NUR ---
SHIFT SUMMARY LYING IN SEMI FOWLERS WITH EYES CLOSED. HAS DONE WELL THIS SHIFT. DENIES FURTHER NEEDS OR WANTS AT THIS TIME. STATES THAT HE IS READY TO GO HOME. SAFETY MEASURES IN PLACE. WILL GIVE HAND OFF TO ONCOMING SHIFT USING SBAR.
[2019-03-06] MEDS ORDERED: ALBU90OI INH (09:45)
[2019-03-06] MEDS ORDERED: AMOCLA875 PO (09:46)
[2019-03-06] MEDS ORDERED: TUMS500 MG PO (09:47)
[2019-03-06] MEDS ORDERED: BISA10S PR (09:47)
[2019-03-06] MEDS ORDERED: DECADRON4 MG PO (09:51)
[2019-03-06] MEDS ORDERED: DOCU100 PO (09:51)
[2019-03-06] MEDS ORDERED: ALBU3IS INH (09:52)
[2019-03-06] MEDS ORDERED: Synthroid25 MCG PO (09:53)
[2019-03-06] MEDS ORDERED: MELATONIN5 M1 PO (09:54)
[2019-03-06] MEDS ORDERED: Nicoderm Cq1 EAC1 TOP (09:54)
[2019-03-06] MEDS ORDERED: ONDA4ODT MM (09:56)
[2019-03-06] MEDS ORDERED: OXYC5 PO (09:58)
[2019-03-06] MEDS ORDERED: PANT40 PO (09:59)
[2019-03-06] MEDS ORDERED: MIRALAX17 GM PO (10:01)
[2019-03-06] MEDS ORDERED: ROPI.25 PO (10:02)
[2019-03-06] MEDS ORDERED: Florastor250 MG PO (10:02)
--- NOTE | 2019-03-06 11:30 | NUR ---
DISCHARGE D/C INSTRUCTIONS GIVEN TO PT BY RN. HARD SCRIPS SENT WITH PT. REPORTS NO FURTHER QUESTIONS OR CONCERNS AT THIS TIME. PT TOLERATING FOOD, FLUIDS, VOIDING, AMBULATES IND. PT LEFT AMBULATING IND. WITH FAMILY. PERSONAL BELONGINGS SENT HOME WITH PT.
== END 2019-03-06 11:20 | disposition home or self-care (01) | DRG 329 ==
LOC: ER 17:06 → SURS 18:38
PROVIDERS: Family Medicine; Surgery; ADMIT Surgery
PROC: 0DTH0ZZ Resection of Cecum, Open Approach (ICD-10-PCS; 2019-02-17)
PROC: 0WJG4ZZ Inspection of Peritoneal Cavity, Percutaneous Endoscopic Approach (ICD-10-PCS; 2019-02-17)
PROC: 0DTJ0ZZ Resection of Appendix, Open Approach (ICD-10-PCS; principal; 2019-02-17 09:00)
DX: C18.0 Malignant neoplasm of cecum (principal); K35.33 Acute appendicitis with perforation, localized peritonitis, and gangrene, with abscess; K91.89 Other postprocedural complications and disorders of digestive system; K56.7 Ileus, unspecified; G45.9 Transient cerebral ischemic attack, unspecified; R29.810 Facial weakness; G93.9 Disorder of brain, unspecified; G25.81 Restless legs syndrome; F17.210 Nicotine dependence, cigarettes, uncomplicated; E03.9 Hypothyroidism, unspecified; R47.81 Slurred speech; R20.0 Anesthesia of skin; R53.1 Weakness; D64.9 Anemia, unspecified; D47.3 Essential (hemorrhagic) thrombocythemia
CPT/HCPCS: 36415; 49406; 70450; 70553; 71046; 71250; 74177; 80048; 80053; 82947; 83735; 84100; 84443; 84478; 85025; 85610; 86480; 87015; 87070; 87075; 87077; 87116; 87186; 87205; 87206; 88309; 93005; 93010; 94640; 94760; 96374; 96375; 99285-25; A9577; C1751; C9113; J1100; J1170; J1650; J1885; J2370; J2405; J2543; J2704; J2710; J3010; J7030; J7050; J7060; J7120; Q9967